=== PATIENT | female | born 1955 | race American Indian/Alaskan Native ===

== ENCOUNTER 2016-11-08 08:20 | Day surgery (SDC) | payer OTHER ==
--- NOTE | 2016-11-08 09:53 | Anesthesia Consultation ---
Anesthesia Consult and Med Hx Date of service: 11/08/16 - Airway Anesthetic Teeth Evaluation: Partials ROM Head & Neck: Adequate Mental/Hyoid Distance: Adequate Mallampati Class: Class II Intubation Access Assessment: Probably Good - Pulmonary Exam CTA: Yes - Cardiac Exam Cardiac Exam: RRR - Pre-Operative Health Status ASA Pre-Surgery Classification: ASA3 Proposed Anesthetic Plan: MAC - Pulmonary Hx Respiratory Symptoms: Yes (H/O DVT with bilateral PE. Anticoagulated, no filter.) - Cardiovascular System Hx Hypertension: Yes - Gastrointestinal Hx Gastroesophageal Reflux Disease: Yes (last medicated 11/07/16)
--- NOTE | 2016-11-08 09:54 | Anesthesia Day of Surgery ---
Anesthesia Day of Surgery - Day of Surgery Patient Examined: Yes Patient H&P Reviewed: Yes Patient is NPO: Yes
[2016-11-08] MEDS ORDERED: PEPCID IV NR (10:00)
[2016-11-08] MEDS ORDERED: DIPRIVAN 10 MG/ML IV ONE (10:54)
[2016-11-08] MEDS ORDERED: NACL 0.9% 1000 ML 1,000 ML IV SCH (11:00)
--- NOTE | 2016-11-08 11:06 | Discharge Summary ---
Providers - Providers Date of discharge: 11/08/16 Attending physician: CAREY JAY Primary care physician: SIVA OH Hospitalization Condition: Good Procedures: egd Disposition: - TO HOME OR SELFCARE Core Measure Documentation - Palliative Care Palliative Care/ Comfort Measures: Not Applicable - Core Measures Any of the following diagnoses?: none Exam - Physical Exam Narrative exam: unchanged from pre-op - Constitutional Vitals: Temp Pulse Resp BP Pulse Ox 97.7 F 63 18 126/77 96 11/08/16 10:10 11/08/16 10:10 11/08/16 10:10 11/08/16 10:10 11/08/16 10:10 Plan Activity: no restrictions Weight Bearing Status: Weight Bear as Tolerated Diet: regular Follow up with: SIVA OH MD [Primary Care Provider] - 7 Days
[2016-11-08] MEDS ORDERED: PEPCID IV ONE (11:08)
--- NOTE | 2016-11-08 11:12 | Operative Report ---
Operative Report Operative Report: GD Post bypass DATE: 11/08/16 OPERATIVE REPORT - EGD PREOP DIAGNOSIS: dysphagia, GERD POSTOP DIAGNOSIS: bile reflux SURGERY: Upper endoscopy. SURGEON: Lea Singh M.D. TYPE OF ANESTHESIA: MAC. ESTIMATED BLOOD LOSS: None. COMPLICATIONS: None. SPECIMENS REMOVED: None. FINDINGS: 1. normal esophagus 2. gastric pouch - 20ml 3. gastrojejunal anastomosis is 20mm INDICATIONS:INDICATION FOR PROCEDURE: Patient is a 61-year-old female s/p gastric bypass in. Pt has history of reflux and the feeling of food getting stuck in her pouch. She is here for evaluation of her gastric bypass anatomy. PROCEDURE DETAILS: After consent was reviewed, patient was taken back to the operating room where patient was placed in the left lateral decubitus position and a bite block was placed in the mouth. After a time-out was called, MAC anesthesia was initiated. I then passed the endoscope into the patients oropharynx, into the esophagus, visualized the entire esophagus, which was all within normal limits. I then visualized the gastric pouch which was normal and about 20ml in size. The gastrojejunal anastomosis was normal at about 20mm. The proximal portion of the vickie limb was normal. There was noted to be bile reflux into the gastric pouch from the vickie limb. There were no signs of obstruction of stenosis of the GJ then desufflated the gastric pouch and removed the endoscope. Patient tolerated procedure well and was transferred to recovery room in good and stable condition
[2016-11-08 11:46] VITALS: BP 115/75
--- NOTE | 2016-11-08 12:14 | Post Anesthesia Evaluation ---
- Post Anesthesia Evaluation Patient Participated: Yes Airway Patent: Yes Stable Respiratory Function: Yes Temp > 96.8F: Yes Pain Manageable: Yes Adequeate Hydration: Yes Anesthesia Complications: No
== END 2016-11-08 08:21 | disposition home or self-care (01) ==
LOC: GIO 08:20
PROVIDERS: ATTEND Surgery
DX: K21.9 Gastro-esophageal reflux disease without esophagitis (principal); I10 Essential (primary) hypertension; E03.9 Hypothyroidism, unspecified; M19.90 Unspecified osteoarthritis, unspecified site; E66.9 Obesity, unspecified; Z68.36 Body mass index [BMI] 36.0-36.9, adult; Z98.84 Bariatric surgery status; Z86.718 Personal history of other venous thrombosis and embolism; Z79.01 Long term (current) use of anticoagulants; Z79.899 Other long term (current) drug therapy
CPT/HCPCS: 43235; J2704; J7030